=== PATIENT | female | born 1945 | race Caucasian/White ===

== ENCOUNTER → 2017-03-23 | Outpatient (CLI) | payer MEDICARE ==
[~2017-03-23] MED LIST: AMLODIPINE BESY10 MG PO; APAP325 M1 PO; ASPIRIN EC81 M1 PO; ASPIRIN81 M1 PO; BENADRYL PO; BLACK COHOSH PO; CALCIUM 600 PO; CELEXA PO; CLOPIDOGREL75 MG PO; GLUCOSAMINE CHONDROI PO; HYDROCHLOROTH12.5 M1 PO; K-DUR20 ME1 PO; LEVSIN PO; LIPITOR40 MG PO; MULTI-VITAMIN1 TAB PO; PHENERGAN PO; PHENERGAN25 MG PO; SOY CARE PO; TOPROL XL 50 MG50 MG PO; VICODIN 5/500 T1 TAB PO; ZEGERID40 MG/PKT PO; ZITHROMAX PO
[2017-03-23 13:30] LABS: BASOPHIL# 0.1 X10e3 (0-0.3); BASOPHIL% 1.4 % (0-2.5); EOSINOPHIL# 0.3 X10e3 (0-0.7); EOSINOPHIL% 3.9 % (0.0-7.0); HEMATOCRIT 41.5 % (35.0-45.0); HEMOGLOBIN 13.7 gm/dL (12.0-16.0); LYMPHOCYTE# 2.4 X10e3 (1.0-3.5); MEAN CELL VOLUME 85.8 FL (83-96); MEAN CORPUSCULAR HEMOGLOBIN 28.3 PG (28-34); MONOCYTE# 0.5 X10e3 (0-1.0); MONOCYTE% 5.6 % (3.0-12.0); NEUTROPHIL# 5.3 X10e3 (1.5-7.1); NEUTROPHIL% 61.1 % (40-75); PLATELET COUNT 371 X10e3 (140-420); RED BLOOD COUNT 4.83 X10e (3.90-5.30); RED CELL DISTRIBUTION WIDTH 13.8 % (11.0-15.5); WHITE BLOOD COUNT 8.7 X10e3 (4.0-10.5)
[2017-03-23 13:44] LABS: DIFF IND NO
[2017-03-23 14:02] LABS: CREATININE,RANDOM URINE 34 mg/dL; TOTAL PROTEIN,RANDOM URINE 28 mg/dl (<10)
[2017-03-23 14:47] LABS: URINE APPEARANCE CLEAR; URINE BILIRUBIN NEG (NEG); URINE BLOOD TRACE (NEG); URINE COLOR YELLOW; URINE GLUCOSE NEG (NEG); URINE KETONE NEG (NEG); URINE LEUKOCYTE ESTERASE NEG (NEG); URINE NITRATE NEG (NEG); URINE PROTEIN 1+ (NEG); URINE SPECIFIC GRAVITY 1.004 (1.003-1.035); URINE UROBILINOGEN 0.2 MG/DL (NEG)
[2017-03-23 14:52] LABS: URINE BACTERIA AUWI NEG (NEGATIVE); URINE SQUAMOUS EPITHELIAL CELL OCC /[HPF]
[2017-03-23 14:59] LABS: ALBUMIN SERUM 3.7 g/dL (3.5-5.0); BILIRUBIN,TOTAL 0.8 mg/dL (0.2-2.0); CALCIUM SERUM 8.9 mg/dL (8.4-10.2); CREATININE SERUM 1.3 mg/dL (0.6-1.4); GLOM FILT RATE Estimated 41.5 mL/min (>60); POTASSIUM 4.6 mmol/L (3.5-5.1); PROTEIN TOTAL SERUM 7.2 g/dL (6.0-8.3)
== END | disposition home or self-care (01) ==
LOC: CLAB 12:21
PROVIDERS: Internal Medicine Nephrology
DX: N18.2 Chronic kidney disease, stage 2 (mild) (principal)
CPT/HCPCS: 36415; 80053; 81003; 82570; 84156; 85025

== ENCOUNTER → 2017-03-30 | Outpatient (CLI) | payer MEDICARE ==
--- NOTE | ~2017-03-30 | MR18 ---
[facility] A Service of [facility] RADIOLOGY TEXT RESULTS PATIENT: ROMEO ALLISON LOCATION: [facility] : 47 UNIT #: [id number] AGE: [address]: Lorin Phillips MD SEX: F ORDER DR: [id number] [facility] [address] [place], [place] [address] [id number] O MR#: [id number] Acc #: [id number] NAME: ROMEO ALLISON : 1945 SEX: F STUDY DATE/TIME: 03/30/2017 14:29 UNIT: [facility] ROOM: STUDY DESCRIPTION: MR Brain Wo Contrast Attending Physician: Lorin Phillips M.D. Referring Physician: Lorin Phillips M.D. Ordering Physician: Lorin Phillips M.D. Primary Care Physician: Lorin Phillips M.D. MRI CENTER REPORT This report is preliminary unless electronic signature is present. EXAM MRI of the brain without. HISTORY Hypertension and headaches. Patient indicates hypertension. Chronic headaches for a month. Blood pressure is not improving. No history of cancer. No other symptoms. COMMENT MRI of the brain was performed without contrast using routine 1.5T imaging technique. COMPARISON There is a comparison study from 11/16/16. FINDINGS There is no evidence for a recent ischemic insult on the diffusion series. No Chiari-I malformation. Partly seen are some cervical spine degenerative changes. There is mild white matter signal abnormality which is nonspecific, likely due to small vessel disease most confluent with periventricular white matter. The small focus of encephalomalacia in the right frontal lobe laterally. There is no extraaxial fluid collection. There is essentially age-appropriate volume loss. The major intracranial flow voids are maintained. There is mild generalized prominence of perivascular spaces with tiny lacunes and/or prominent perivascular spaces in the bilateral basal ganglia and thalami. I believe there is a tiny focal lacuna at the medial aspect of the left thalamus also chronic. The mastoid air cells are clear. There is a small mucous retention cyst or polyp in the right maxillary sinus. There is no MRI evidence for intracranial hemorrhage. There is no intracranial mass effect. There is no significant interval change in the appearance of the brain since the previous study 11/16/16. [facility] A Service of [facility] RADIOLOGY TEXT RESULTS PATIENT: ROMEO ALLISON LOCATION: [facility] : [birth year] UNIT #: [id number] AGE: [address]: Lorin Phillips MD SEX: F ORDER DR: IMPRESSION 1. Stable appearance of the brain on comparison 11/16/16. Again there is mild probable sequelae of small vessel disease and a focal area of encephalomalacia in the right frontal lobe. There is no recent ischemic insult. No intracranial mass effect or extraaxial fluid collection. ADDENDUM Findings called to Dr. Phillips's office with results given to her nurse. STAT * RESULT Dictated by... Jackelyn Bland M.D. THIS IS AN ELECTRONICALLY VERIFIED REPORT Jackelyn Bland M.D. at 03/30/2017 3:41 PM BISMARK/josue TD: 03/30/2017 15:29 JOB #: [id number] MRI CENTER REPORT Page 1 of 1 COPY
== END | disposition home or self-care (01) ==
LOC: CMRI 13:02
DX: R51 Headache (principal); I10 Essential (primary) hypertension; G93.89 Other specified disorders of brain
CPT/HCPCS: 70551

== ENCOUNTER → 2017-06-11 | Outpatient (CLI) | payer MEDICARE ==
--- NOTE | ~2017-06-11 | BD1 ---
[facility] A Service of [facility] RADIOLOGY TEXT RESULTS PATIENT: ROMEO ALLISON LOCATION: [facility] : [birth year] UNIT #: [id number] AGE: [address]: Lorin Phillips MD SEX: F ORDER DR: [id number] [facility] [address] [place], [place] [address] [id number] O MR#: [id number] Acc #: [id number] NAME: ROMEO ALLISON : 1945 SEX: F STUDY DATE/TIME: 06/11/2017 10:52 UNIT: [facility] ROOM: STUDY DESCRIPTION: BD Dexa Bone Dens 1+ Site Attending Physician: Lorin Phillips M.D. Ordering Physician: Lorin Phillips M.D. Primary Care Physician: Lorin Phillips M.D. MEDICAL IMAGING REPORT This report is preliminary unless electronic signature is present EXAM DXA scan, 06/11/2017. HISTORY Status post menopause with no hormone replacement therapy. Osteopenia. Kidney disease. Hypertension with blood pressure medication. Smoking history for 50 years. Fracture of wrist in the last 10 years. FINDINGS Bone mineral density in the lumbar spine from L1-L4 is 0.911 g/cm2 which is 1.2 standard deviations below the mean when compared to the young adult reference population which is characteristic of osteopenia. This is 0.9 standard deviations above the mean when compared to the age-matched population. Compared with 01/09/2015, there has been an increase in bone mineral density in the lumbar spine of 3.5%. Bone mineral density in the left femoral neck was 0.569 g/cm2 which is 2.5 standard deviations below the mean when compared to the young adult reference population which is characteristic of osteoporosis. This is 0.7 standard deviations below the mean when compared to the age-matched population. Compared with 01/09/2015, there has been a decrease in bone mineral density in the left hip of 6.2%. IMPRESSION Bone mineral density in the lumbar spine characteristic of osteopenia and within the left hip characteristic of osteoporosis. Compared with 01/09/2015, there has been an increase in bone mineral density in the lumbar spine and a decrease in bone mineral density in the left hip. Dictated by... Jose Gilmore M.D. [facility] A Service of [facility] RADIOLOGY TEXT RESULTS PATIENT: ROMEO ALLISON LOCATION: [facility] #: [id number] : [birth year] UNIT #: [id number] AGE: [address]: Lorin Phillips MD SEX: F ORDER DR: THIS IS AN ELECTRONICALLY VERIFIED REPORT Jose Gilmore M.D. at 06/11/2017 4:53 PM JENISE/annie TD: 06/11/2017 15:23 JOB #: [id number] MEDICAL IMAGING REPORT Page 1 of 1 COPY
--- NOTE | ~2017-06-11 | MY29 ---
[facility] A Service of [facility] RADIOLOGY TEXT RESULTS PATIENT: ROMEO ALLISON LOCATION: [facility] : 46 UNIT #: [id number] AGE: [address]: Lorin Phillips MD SEX: F ORDER DR: [id number] [facility] [address] [place], [place] [address] [id number] O MR#: [id number] Acc #: [id number] NAME: ROMEO ALLISON : 1945 SEX: F STUDY DATE/TIME: 06/11/2017 11:13 UNIT: [facility] ROOM: STUDY DESCRIPTION: MY FIORDALIZA SCREENING W/ CAD BILAT Attending Physician: Lorin Phillips M.D. Ordering Physician: Lorin Phillips M.D. Primary Care Physician: Lorin Phillips M.D. MEDICAL IMAGING REPORT This report is preliminary unless electronic signature is present EXAM Digital screening mammogram, 06/11/2017; [facility]. HISTORY 72-year-old woman, family history of ovarian cancer in sister, age 58. Annual screen. COMPARISON Comparison mammograms date to 08/31/2011, with most recent 06/09/2016. FINDINGS Digital imaging of each breast was completed utilizing a two-view examination of each breast in craniocaudal and mediolateral-oblique projections. Review and interpretation of digital mammograms include a second review in conjunction with FDA-approved CAD device. There is a normal parenchymal presentation bilaterally consistent with the patient's age. There are no breast masses imaged and no parenchymal asymmetry is visualized. There are no suspicious microcalcifications and I see no focal architectural disturbance. IMPRESSION Negative screening digital mammogram. One-year followup recommended. Patients over the age of 40 are entered into a reminder system with target due date for the next mammogram. A result letter will also be sent to the patient. BIRADS: 1 Negative. ADDENDUM Breast parenchyma is predominately fatty replaced. [facility] A Service [facility] RADIOLOGY TEXT RESULTS PATIENT: ROMEO ALLISON LOCATION: [facility] : [birth year] UNIT #: [id number] AGE: [address]: Lorin Phillips MD SEX: F ORDER DR: Dictated by... Jarvis Mayorga M.D. THIS IS AN ELECTRONICALLY VERIFIED REPORT Jarvis Mayorga M.D. at 06/13/2017 1:44 PM RAJESH/josue TD: 06/11/2017 15:57 JOB #: [id number] MEDICAL IMAGING REPORT Page 1 of 1 COPY
== END | disposition home or self-care (01) ==
LOC: CWCC 10:20
DX: Z12.31 Encounter for screening mammogram for malignant neoplasm of breast (principal); M89.9 Disorder of bone, unspecified; Z78.0 Asymptomatic menopausal state
CPT/HCPCS: 77080; G0202